=== PATIENT | male | born 1950 | race Caucasian/White ===

== ENCOUNTER 2017-06-04 08:14 | Day surgery (SDC) | payer MEDICARE, BC ==
[~2017-06-04 08:14] MED LIST: Lactated Ringers 1,000 ML IV SCH
[2017-06-04] MEDS ORDERED: fentaNYL 100 MCG/2 ML SDV ONE (09:07)
[2017-06-04] MEDS ORDERED: Propofol 200 MG/20 ML SDV ONE ×2 (09:07→10:08)
[2017-06-04 10:45] VITALS: BP 141/80
--- NOTE | 2017-06-04 18:06 | OR ---
PREOPERATIVE DIAGNOSIS: Screening colonoscopy. POSTOPERATIVE DIAGNOSIS: Sigmoid polyps x2 removed. PROCEDURE PROPOSED: Total flexible colonoscopy. PROCEDURE DONE: Total flexible colonoscopy with polypectomy x2. INDICATION: This is a 67-year-old gentleman who was recommended to proceed with screening colonoscopy. He apparently has had one scope previously in the last 5 to 10 years. He denies any symptomatology, and he has a negative family history for colon cancer. TECHNIQUE: The patient was brought to the endoscopy suite, placed in left lateral decubitus position. He was sedated per [employer] with propofol. The flexible video colonoscope was then passed transanally and under visualization advanced to the cecum. He had a rather significant twist at about 60 cm requiring numerous attempts to get by that area, and I eventually got by and then an easy passage to the cecum was obtained. Examination revealed a normal ascending, transverse, and descending colon and in the sigmoid colon at about 25 cm from the anal verge, there were two polyps, both were removed by hot snare technique and retrieved with suction. The remainder of the rectum was normal. He did have some internal and external hemorrhoids. He had somewhat of a prolapsing internal hemorrhoid that appeared to be insignificant as far as inflammation. He tolerated the entire procedure well. IMPRESSION: 1. Sigmoid polyps x2, removed. 2. Mild prolapsing internal hemorrhoids also with external hemorrhoids. PLAN: The patient will be sent a letter with Pathology report. I felt that he should have a followup examination again in 5 years time. If his hemorrhoids become more symptomatic; he could come to the clinic for hemorrhoid banding of the internal hemorrhoids that are prolapsing. He was discharged in good condition. SCM: 06/04/2017 10:41:13 MODL: 06/04/2017 14:22:40 /[id number]
--- NOTE | 2017-06-20 07:38 | LETTER ---
06/18/2017 RE: TARUN PACKER : 1950 Dear Tarun, The polyps removed from your colon were benign. 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 There were no worrisome findings within your polyps, but I would recommend that you continue to have colonoscopies every 5 years to make sure you are not forming any new polyps. If you have any further question regarding this, feel free to call. Respectfully,
== END 2017-06-04 11:35 | disposition home or self-care (01) ==
LOC: VM.SDS 08:14
PROVIDERS: ATTEND Surgery
DX: Z12.11 Encounter for screening for malignant neoplasm of colon (principal); D12.6 Benign neoplasm of colon, unspecified; K64.8 Other hemorrhoids; K64.4 Residual hemorrhoidal skin tags; I10 Essential (primary) hypertension; E78.5 Hyperlipidemia, unspecified; I25.10 Atherosclerotic heart disease of native coronary artery without angina pectoris; Z72.0 Tobacco use; I25.2 Old myocardial infarction; Z98.890 Other specified postprocedural states; Z79.82 Long term (current) use of aspirin; Z79.899 Other long term (current) drug therapy; F17.210 Nicotine dependence, cigarettes, uncomplicated
CPT/HCPCS: 00810; 45385; J2704; J3010; J7120; 88305